=== PATIENT | female | born 1965 | race African-American/Black ===

== ENCOUNTER 2018-04-25 07:17 | Inpatient (IN) | payer OTHER, BC ==
[~2018-04-25] VITALS: Ht 165.1 cm; Wt 105.5 kg
[~2018-04-25 07:17] MED LIST: AMOXICILLIN500 MG PO; ATENOLOL25 MG PO; CADUET 10/101 TABLET PO; CADUET 10/201 TABLET PO; CRESTOR20 MG PO; GLUCOTROL XL2.5 MG PO; HYDROCHLOROTH12.5 M3 PO; HYDROCHLOROTHIA25 MG PO; LANTUS 3 M100 UNITS1 SQ; MIRALAX255 GM PO; ROBAXIN500 MG PO; TENORMIN25 MG PO; TYLENOL WITH C1 EACH PO; VICTOZA0.6 MG/0.1 SC; ZESTRIL,PRINIVI40 MG PO; ZESTRIL40 MG PO
[2018-04-25 09:26] LABS: HEMATOCRIT 37.1 % (36.0-46.0); HEMOGLOBIN 12.1 G/DL (11.9-15.5); MCH 26.5 PG (29.0-34.0); MCHC 32.6 G/DL (30.0-36.0); MCV 81.2 FL (83-99); PLATELET COUNT 261 K/uL (156-360); RBC DIS.WIDTH-CV 14.6 % (11.8-14.6); RBC DIS.WIDTH-SD 43.3 % (39-53); RED BLOOD COUNT 4.57 M/uL (3.80-5.20); WHITE BLOOD COUNT 6.5 K/uL (4.1-10.2)
[2018-04-25 09:35] LABS: CHLORIDE 105 mEq/L (99-109); POTASSIUM 3.6 mEq/L (3.7-5.4); SODIUM 145 mEq/L (136-147)
[2018-04-25 09:36] LABS: GLUCOSE 142 mg/dL (70-99)
[2018-04-25 09:40] LABS: CREATININE 0.9 mg/dL (0.6-1.3); GFR ESTIMATE (CALCULATED) > 59 mL/min/
[2018-04-25 09:41] LABS: UREA NITROGEN (BUN) 11 mg/dL (9-23)
[2018-04-25 09:47] LABS: TROP-I INTERPRETATION NEGATIVE; TROPONIN-I 0.04 ng/mL (0.0-0.30)
[2018-04-25 09:50] LABS: QUANTITATIVE HCG < 4.0 MIU/ML
[2018-04-25] MEDS ORDERED: INSULIN PUMP MC (11:34)
[2018-04-25] MEDS ORDERED: NOLVADEX20 MG PO (11:34)
[2018-04-25] MEDS ORDERED: PROAIR HFA8.5 GM IH (11:35)
[2018-04-25 14:44] VITALS: BP 169/86
[2018-04-25 15:40] LABS: TROP-I INTERPRETATION NEGATIVE; TROPONIN-I 0.04 ng/mL (0.0-0.30)
[2018-04-25 16:09] VITALS: BP 173/91
[2018-04-25 20:19] VITALS: BP 187/97
[2018-04-25 21:09] LABS: TROP-I INTERPRETATION NEGATIVE; TROPONIN-I 0.04 ng/mL (0.0-0.30)
[2018-04-26 00:18] VITALS: BP 120/61
[2018-04-26 03:52] VITALS: BP 127/70
[2018-04-26 07:11] VITALS: BP 134/79
[2018-04-26 09:11] LABS: HEMATOCRIT 35.6 % (36.0-46.0); HEMOGLOBIN 11.5 G/DL (11.9-15.5); MCH 26.1 PG (29.0-34.0); MCHC 32.3 G/DL (30.0-36.0); MCV 80.9 FL (83-99); PLATELET COUNT 244 K/uL (156-360); RBC DIS.WIDTH-CV 14.7 % (11.8-14.6); RBC DIS.WIDTH-SD 43.4 % (39-53); WHITE BLOOD COUNT 7.8 K/uL (4.1-10.2)
[2018-04-26 09:35] LABS: CHLORIDE 104 MEQ/L (99-109); CREATININE 0.8 MG/DL (0.6-1.3); GFR ESTIMATE (CALCULATED) > 59 mL/min/; GLUCOSE 142 mg/dL (70-99); POTASSIUM 3.5 MEQ/L (3.7-5.4); SODIUM 142 MEQ/L (136-147); UREA NITROGEN (BUN) 11 mg/dL (9-23)
[2018-04-26 15:47] VITALS: BP 142/67; BP 158/74
[2018-04-27 00:01] VITALS: BP 140/65
[2018-04-27 07:06] VITALS: BP 126/51
[2018-04-27] MEDS ORDERED: PREDNISONE20 MG PO (09:48)
[2018-04-27] MEDS ORDERED: CEFTIN500 MG PO (09:48)
[2018-04-27] MEDS ORDERED: SPIRIVA RESPIMAT4 GM IH (09:48)
[2018-04-27] MEDS ORDERED: DULERA 100 MCG/13 GM IH (09:48)
[2018-04-27] MEDS ORDERED: DOXYCYCLINE HY100 MG PO (09:48)
== END 2018-04-27 12:16 | disposition home or self-care (01) | DRG 190 ==
LOC: EME 07:17 → EDOF 11:38 → 5SOUTH 11:38 → ENRESERV 11:44 → 5SOUTH 14:09
PROVIDERS: Emergency Medicine; Hospitalist; Internal Medicine Hematology & Oncology
DX: J44.0 Chronic obstructive pulmonary disease with (acute) lower respiratory infection (principal); J18.9 Pneumonia, unspecified organism; J44.1 Chronic obstructive pulmonary disease with (acute) exacerbation; R06.03 Acute respiratory distress; C77.1 Secondary and unspecified malignant neoplasm of intrathoracic lymph nodes; I89.1 Lymphangitis; I10 Essential (primary) hypertension; E11.9 Type 2 diabetes mellitus without complications; E66.9 Obesity, unspecified; E78.5 Hyperlipidemia, unspecified; Z85.3 Personal history of malignant neoplasm of breast; Z87.891 Personal history of nicotine dependence; Z79.4 Long term (current) use of insulin; Z79.810 Long term (current) use of selective estrogen receptor modulators (SERMs); Z68.38 Body mass index [BMI] 38.0-38.9, adult
CPT/HCPCS: 71275; 80048; 82948; 83880; 84145 90; 84484; 84702; 85027; 85730; 86300 90; 87040; 87449; 93005; 93306; 94060; 94640; 94726; 94729; 94799; 99281; 99285; J0360; J0456; J0696; J1650; J7512